=== PATIENT | male | born 1975 | race Hispanic/Latino ===

== ENCOUNTER 2017-03-30 16:30 | Emergency (ER) | payer OTHER ==
[~2017-03-30] VITALS: Ht 160 cm; Wt 70.0 kg
[~2017-03-30 16:30] MED LIST: CEPHALEXIN500 MG PO
[2017-03-30] MEDS ORDERED: PERCOCET 5/325M1 TAB PO (17:56)
[2017-03-30] MEDS ORDERED: CIPROFLOXACN750 MG PO (17:56)
[2017-03-30 18:13] VITALS: BP 116/75
[2017-03-31] MEDS ORDERED: BENADRYL 50MG C50 MG PO (13:39)
[2017-03-31] MEDS ORDERED: LORTAB 10-325 M1 TAB PO (13:39)
== END 2017-03-30 18:14 | disposition home or self-care (01) | DRG 914 ==
LOC: ED 16:30
PROC: 0HQFXZZ Repair Right Hand Skin, External Approach (ICD-10-PCS; principal; 2017-03-30)
DX: S68.624A Partial traumatic transphalangeal amputation of right ring finger, initial encounter (principal); X58.XXXA Exposure to other specified factors, initial encounter; Y93.H2 Activity, gardening and landscaping; Y92.89 Other specified places as the place of occurrence of the external cause

== ENCOUNTER 2017-03-31 12:33 | Emergency (ER) | payer OTHER ==
[~2017-03-31] VITALS: Ht 160 cm; Wt 70.0 kg
[~2017-03-31 12:33] MED LIST changes: +CIPROFLOXACN750 MG PO; +PERCOCET 5/325M1 TAB PO
[2017-03-31] MEDS ORDERED: LORTAB 10-325 M1 TAB PO (13:39)
[2017-03-31] MEDS ORDERED: BENADRYL 50MG C50 MG PO (13:39)
[2017-03-31 13:47] VITALS: BP 130/69
== END 2017-03-31 13:55 | disposition home or self-care (01) | DRG 950 ==
LOC: ED 12:33
DX: S61.314D Laceration without foreign body of right ring finger with damage to nail, subsequent encounter (principal); X58.XXXD Exposure to other specified factors, subsequent encounter

== ENCOUNTER 2021-06-24 12:08 | Emergency (ER) | payer OTHER ==
[~2021-06-24] VITALS: Ht 160 cm; Wt 68.0 kg
[~2021-06-24 12:08] MED LIST changes: +BENADRYL 50MG C50 MG PO; +LORTAB 10-325 M1 TAB PO
[2021-06-24 14:28] LABS: HEMOGLOBIN 13.9 g/dl (14.0-18.0); IMMATURE GRANULOCYTES 0.5 % (0.0-5.0); MEAN CELL VOLUME 94.3 fL CALC (80.0-100.0); MEAN CORPUSCULAR HGB CONC 33.9 g/dL CAL (32.0-36.0); NEUT# 3.12 thou/uL (1.82-7.42); RED BLOOD COUNT 4.35 mill/uL (4.70-6.10); RED CELL DISTRI WIDTH 11.5 % (11.5-15.5)
[2021-06-24 14:53] LABS: INTERNATIONAL NORMALIZED RATIO 0.9 RATIO (0.7-1.3)
[2021-06-24 14:57] LABS: ALKALINE PHOSPHATASE 72 u/l (38-126); ANION GAP 11 (6-22 (CALC)); BILIRUBIN, TOTAL 0.4 mg/dL (0.0-1.4); BUN 13 mg/dL (9-20); BUN/CREATININE RATIO 16 (12-20 (CALC)); CARBON DIOXIDE 26 mmol/l (22-30); CHLORIDE 101 mmol/l (95-108); CREATININE 0.8 mg/dL (0.7-1.3); GFR > 60 ML/MIN (>=60 (CALC)); GFR FOR AFR.AMER. > 60 ML/MIN (>=60 (CALC)); POTASSIUM 4.3 mmol/l (3.5-5.1); SGOT/AST 77 u/l (17-59); SODIUM 134 mmol/l (137-146); TOTAL PROTEIN 7.5 g/dL (6.3-8.2)
[2021-06-24] MEDS ORDERED: ZPAK PO (15:20)
[2021-06-24] MEDS ORDERED: MEDDOSEPAK PO (15:25)
[2021-06-24 15:31] VITALS: BP 146/96
== END 2021-06-24 15:46 | disposition home or self-care (01) | DRG 179 ==
LOC: ED 12:08
PROVIDERS: Physician Assistant Surgical
DX: U07.1 COVID-19 (principal); J45.909 Unspecified asthma, uncomplicated

== ENCOUNTER 2023-01-23 13:56 | Emergency (ER) | payer SELFPAY ==
[~2023-01-23] VITALS: Ht 160 cm; Wt 70.3 kg
[2023-01-23] VITALS (10 sets, daily range): BP systolic 128–149; BP diastolic 88–100
[~2023-01-23 13:56] MED LIST changes: +MEDDOSEPAK PO; +ZPAK PO
[2023-01-23 16:47] LABS: BASO% 0.4 % (0-3); EOS% 1.2 % (0-8); HEMATOCRIT 39.7 % (39.0-50.0); HEMOGLOBIN 13.7 g/dl (14.0-18.0); IMMATURE GRANULOCYTES 0.3 % (0.0-5.0); LYMPH% 15.1 % (15-41); MEAN CELL VOLUME 93.2 fL CALC (80.0-100.0); MEAN CORPUSCULAR HGB 32.2 pG CALC (26.0-32.0); MEAN CORPUSCULAR HGB CONC 34.5 g/dL CAL (32.0-36.0); MONO% 7.6 % (2-13); NEUT# 7.67 thou/uL (1.82-7.42); NEUT% 75.4 % (42-76); RED BLOOD COUNT 4.26 mill/uL (4.70-6.10); RED CELL DISTRI WIDTH 11.8 % (11.5-15.5)
[2023-01-23 17:02] LABS: ALBUMIN 4.2 g/dL (3.2-5.0); ALKALINE PHOSPHATASE 98 u/l (38-126); ANION GAP 14 (6-22 (CALC)); BILIRUBIN, TOTAL 0.7 mg/dL (0.2-1.3); BUN 11 mg/dL (9-20); BUN/CREATININE RATIO 11 (12-20 (CALC)); CARBON DIOXIDE 26 mmol/l (22-30); CHLORIDE 102 mmol/l (95-108); GFR FOR AFR.AMER. > 60 ML/MIN (>=60 (CALC)); GFR OTHER RACES > 60 ML/MIN (>=60 (CALC)); POTASSIUM 4.4 mmol/l (3.5-5.1); SGOT/AST 55 u/l (17-59); SODIUM 137 mmol/l (137-146); TOTAL PROTEIN 6.8 g/dL (6.3-8.2)
[2023-01-23] MEDS ORDERED: INDOCIN25 MG PO (18:05)
[2023-01-23] MEDS ORDERED: MITIGARE0.6 MG PO (18:05)
== END 2023-01-23 18:17 | disposition home or self-care (01) | DRG 554 ==
LOC: ED 13:56
PROVIDERS: Emergency Medicine
DX: M10.072 Idiopathic gout, left ankle and foot (principal)